=== PATIENT | male | born 1980 ===

== ENCOUNTER 2017-04-20 14:13 | Emergency (ER) | payer SELFPAY ==
[2017-04-20 14:27] VITALS: RESP 18; TEMP 98.2; O2SAT 100
[2017-04-20] MEDS ORDERED: Amoxicillin-Clav 875-125 mg Tab PO STA (14:48)
[2017-04-20] MEDS ORDERED: Bacitracin 500 Units/gm Oint Foilpak UD TOP ONE (14:48)
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
[2017-04-20 15:20] VITALS: BP 137/82; PULSE 67
== END 2017-04-20 15:19 | disposition home or self-care (01) ==
LOC: ED 14:13
DX: H60.12 Cellulitis of left external ear (principal)